=== PATIENT | female | born 1975 | race Caucasian/White ===

== ENCOUNTER → 2024-11-10 | Outpatient (CLI) | payer BC, SELFPAY ==
--- NOTE | 2024-11-10 08:15 | XR_ITS ---
Examination: Diagnostic digital mammography, bilateral Computer aided detection 3-D breast Tomosynthesis, bilateral Date and time of exam: November 10, 2024 0814 hours Compared to mammograms dating to 04/10/2017 INDICATIONS: History breast carcinoma lumpectomy Technique: Nonmagnified MLO, CC views of the breasts to been obtained, reconstructed from 3-D Tomosynthesis images. R2 computer aided detection program utilized for evaluation of suspicious masses and/or abnormal calcifications. 3-D Tomosynthesis images obtained. Findings: Scattered areas of fibroglandular density Surgical clips and scar formation lower inner left breast, skin thickening Focal asymmetry outer right breast again noted Mass in the posterior right breast on March 14 2021 mm identified, surgical clips evident Impression: BI-RADS Category 0: Incomplete: Needs additional imaging evaluation Architectural distortion both breasts with focal asymmetry upper outer right breast probably stable compared to prior exams Recommend baseline bilateral breast sonography follow-up.
== END | disposition home or self-care (01) ==
LOC: CDIM 07:58
PROVIDERS: PCP Specialist; Referring Provider Specialist; Visit Provider Specialist
DX: R92.8 Other abnormal and inconclusive findings on diagnostic imaging of breast (principal); N64.89 Other specified disorders of breast
CPT/HCPCS: 77062; 77066; G0279

== ENCOUNTER → 2024-11-16 | Outpatient (CLI) | payer BC, SELFPAY ==
--- NOTE | 2024-11-16 10:40 | XR_ITS ---
Examination: Breast ultrasound complete, bilateral Date and time of exam: November 16, 2024 at 1050 hrs. Indications: Mammogram November 10, 2024 architectural distortion both breasts Technique: Real-time grayscale ultrasonographic imaging bilateral breasts, including all 4 quadrants as well as nipple retroareolar and axillary regions. Findings: Sonographic images right breast 7:00 cyst 5 x 5 mm No suspicious solid nodules Sonographic images left breast 7:00 scar formation consistent with the prior lumpectomy Impression: BI-RADS Category 3: Probably benign findings Recommend 1 additional 6 month left breast sonogram follow-up to document stability of scar formation left breast
== END | disposition home or self-care (01) ==
LOC: CDIM 10:26
PROVIDERS: PCP Specialist; Referring Provider Specialist; Visit Provider Specialist
DX: R92.8 Other abnormal and inconclusive findings on diagnostic imaging of breast (principal)
CPT/HCPCS: 76641

== ENCOUNTER → 2025-04-21 | Outpatient (CLI) | payer BC, SELFPAY ==
--- NOTE | 2025-04-21 13:00 | XR_ITS ---
Examination: Breast ultrasound, unilateral, left complete Date and time of exam: April 21, 2025, 1306 hours INDICATIONS: Personal history left breast cancer lumpectomy 2021, breast sonography November 16, 2024 7:00 scar formation left breast, mammogram November 10, 2024 architectural distortion focal asymmetry upper outer right breast stable Technique: Real-time franklin scale ultrasonographic imaging performed left breast including all 4 quadrants as well as nipple retroareolar and axillary region. Findings: No cystic or solid mass Left breast 7 to retroareolar scar formation from prior lumpectomy IMPRESSION: BI-RADS Category 3: Probably benign findings Recommend 1 additional 6 month left breast sonogram follow-up to document stability in size of the scar formation left breast described above
== END | disposition home or self-care (01) ==
LOC: CDIM 12:37
PROVIDERS: PCP Specialist; Referring Provider Internal Medicine Hematology & Oncology; Visit Provider Internal Medicine Hematology & Oncology
DX: R92.332 Mammographic heterogeneous density, left breast (principal); N64.89 Other specified disorders of breast; C50.312 Malignant neoplasm of lower-inner quadrant of left female breast
CPT/HCPCS: 76641